=== PATIENT | male | born 1945 | race Caucasian/White ===

== ENCOUNTER 2017-07-11 07:27 | Inpatient (IN) | payer BC, MEDICARE ==
[2017-07-11 08:57] LABS: #Eosinphils 0.1 thou/uL (0.0-0.7); #Lymphocytes 0.6 thou/uL (1.20-3.40); #Monocytes 0.3 thou/uL (0.11-0.59); #Neutrophils 2.7 thou/uL (1.40-6.50); %Eosinophils 2.5 % (0.0-10.0); Hematocrit 38.3 % (42.0-52.0); Mean Platelet Volume 7.4 fL (7.4-10.4); White Blood Cell (WBC) Count 3.7 thou/uL (4.8-10.8)
[2017-07-11] MEDS ORDERED: Ondansetron HCl/PF 4 MG/2 ML Vial IVP PRN ×3 (08:59→15:37)
[2017-07-11] MEDS ORDERED: HumaLOG 300 UNITS/3 ML VIAL SC PRN (08:59)
[2017-07-11] MEDS ORDERED: Dextrose 50% Abboject 50 ML SYRINGE SLOW IVP PRN (08:59)
[2017-07-11] MEDS ORDERED: Dextrose 5% in Water 1,000 ML IV PRN (08:59)
[2017-07-11] MEDS ORDERED: Morphine Sulfate 2 MG/ML SYRINGE SLOW IVP PRN (09:04)
[2017-07-11 09:05] LABS: ALT (SGPT) 39 U/L (8-55); AST (SGOT) 33 U/L (5-34); Alkaline Phosphatase 59 U/L (40-150); Anion Gap 13 mmol/L (10-20); BUN (Urea Nitrogen) 17 mg/dL (8.4-25.7); Bilirubin, Total 0.6 mg/dL (0.2-1.2); Calc. Creatinine Clearance 0 mL/min (70-130); Calcium 9.3 mg/dL (7.8-10.44); Carbon Dioxide 23 mmol/L (23-31); Chloride 107 mmol/L (98-107); Estimated GFR-MDRD 87; Globulin 2.8 g/dL (2.4-3.5); Protein, Total 6.5 g/dL (5.8-8.1)
--- NOTE | 2017-07-11 09:32 | RAD ---
RIGHT ANKLE 3 VIEWS: HISTORY: Fall. Right ankle injury. FINDINGS: Comminuted fracture of the distal tibia includes a spiral component of the distal metaphysis with shaft width lateral displacement of the major distal fragment and apex lateral angulation. Intraa rticular component to the medial margin of the tibial plafond is apparent with 0.2 cm gap and no sig nificant step-off. Ankle mortise is otherwise intact. Osteophytosis is present throughout the ankl e and hindfoot. Minimally displaced oblique fracture involves the distal fibula at the level of the ankle mortise. IMPRESSION: Comminuted distal tibial and fibular fractures as detailed above. POS: [place]
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
[2017-07-11] MEDS ORDERED: Neomycin-Polymyxin 1 ML AMP ONE (11:34)
[2017-07-11] MEDS ORDERED: Bupivacaine PF 0.5% 30 ML VIAL ONE (11:34)
[2017-07-11] MEDS ORDERED: Ketorolac Tromethamine 15 MG/ML VIAL IVP SCH (12:00)
[2017-07-11] MEDS ORDERED: Fentanyl 250 MCG/5 ML VIAL ONE (12:16)
[2017-07-11] MEDS ORDERED: Fentanyl 100 MCG/2 ML VIAL ONE ×2 (12:28→13:31)
[2017-07-11] MEDS ORDERED: Ketorolac Tromethamine 30 MG/ML VIAL ONE (13:24)
[2017-07-11] MEDS ORDERED: Propofol 200 MG/20 ML VIAL ONE (13:24)
[2017-07-11] MEDS ORDERED: Succinylcholine Chloride 20 MG/ML 10 ml SYRINGE FS ONE (13:24)
[2017-07-11] MEDS ORDERED: Lidocaine 1% PF 5 ML VIAL ONE (13:24)
[2017-07-11] MEDS ORDERED: ePHEDrine/0.9% NaCl/PF SYRINGE 50 mg/10 ml ONE (13:24)
[2017-07-11] MEDS ORDERED: Promethazine HCl 25 MG/ML VIAL SLOW IVP PRN (14:12)
[2017-07-11] MEDS ORDERED: Promethazine HCl 25 MG/ML VIAL IM PRN ×2 (14:12→15:37)
[2017-07-11] MEDS ORDERED: Ropivacaine 0.5% HCl/PF (150 MG/30 ML VIAL) ONE (14:55)
[2017-07-11] MEDS ORDERED: Zolpidem Tartrate 5 MG TAB PO PRN (15:37)
[2017-07-11] MEDS ORDERED: traMADol HCl 50 MG TAB PO PRN ×4 (15:37→16:22)
[2017-07-11] MEDS ORDERED: Fentanyl 100 MCG/2 ML VIAL IV PRN (15:37)
[2017-07-11] MEDS ORDERED: Ropivacaine 0.2% 550 ML 550 ML NERVE BLCK SCH (15:37)
[2017-07-11] MEDS ORDERED: HYDROcodone/Acetaminophen 10/325 mg Tablet PO PRN ×2 (15:37)
[2017-07-11] MEDS: Famotidine 20 MG TAB PO SCH ×2 (16:31→20:59)
[2017-07-11] MEDS: Famotidine/PF 20 mg/2ml Vial SLOW IVP SCH ×2 (16:32→21:00)
--- NOTE | 2017-07-11 16:34 | RAD ---
THREE VIEWS RIGHT ANKLE: Date: 07-11-17 History: ORIF right ankle. Comparison: 07-11-17 at 0755 hours. FINDINGS: There has been interval post-surgical changes with a medial plate and multiple screws transfixing a previously seen comminuted spiral type fracture of the distal tibial. There is improvement in alignm ent of the fracture fragments. No hardware complication is seen. The fracture of the lateral malleol us is less well delineated on the fluoroscopic evaluation. IMPRESSION: Internal fixation of comminuted spiral type fracture distal right tibia. POS: [place]
[2017-07-11] MEDS: Sodium Chloride 0.9% 1,000 ML IV SCH ×2 (17:18→20:56)
[2017-07-11 17:23] VITALS: BMI 27.0
[2017-07-11] MEDS: Ibuprofen 600 MG TAB PO SCH (17:39)
[2017-07-11] MEDS: Acetaminophen 500 MG TAB PO SCH ×3 (17:40→21:01)
[2017-07-11] MEDS ORDERED: Ketorolac Tromethamine 30 MG/ML VIAL IVP SCH (18:00)
[2017-07-11] MEDS ORDERED: Tamsulosin HCl 0.4 MG CAP PO SCH (21:00)
[2017-07-12] MEDS: Ibuprofen 600 MG TAB PO SCH ×2 (02:18→08:44)
[2017-07-12] MEDS: Sodium Chloride 0.9% 1,000 ML IV SCH (04:30)
[2017-07-12] MEDS: Acetaminophen 500 MG TAB PO SCH ×2 (05:13→08:45)
[2017-07-12] MEDS ORDERED: glipiZIDE 5 MG TAB PO SCH (07:30)
[2017-07-12] MEDS: Famotidine/PF 20 mg/2ml Vial SLOW IVP SCH (08:44)
[2017-07-12] MEDS: Famotidine 20 MG TAB PO SCH (08:44)
[2017-07-12] MEDS ORDERED: Tamsulosin HCl 0.4 MG CAP PO SCH (09:00)
[2017-07-12 12:16] VITALS: BP 128/74; TEMP 98.3
--- NOTE | 2017-07-12 12:37 | DIS ---
DATE OF ADMISSION: 07/11/2017 DATE OF DISCHARGE: 07/12/2017 PREOPERATIVE DIAGNOSIS: Right distal tibial metadiaphyseal displaced fracture. DISCHARGE DIAGNOSIS: Right distal tibial metadiaphyseal displaced fracture. PROCEDURE: The patient underwent an open reduction and internal fixation of right lower extremity. HOSPITAL COURSE: Hospital stay was unremarkable. The patient had no pain overnight and his block i s still in place. He will take his On[employer] ball pump home. He has been instructed on physical therapy , crutch training, and walker training. We have written him a script for Tylenol #[address]. He had no postoperative complications. FOLLOWUP: Followup would be in 10 days, sooner if there are problems and/or concerns. He has been instructed to call the clinic if he has any questions or concerns, again Tylenol #3 given with instr uctions. This is Ernesto Mason PA-C dictating for Stanford Bojorquez M.D.
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
--- NOTE | 2017-07-14 06:46 | EKG ---
Test Reason : PREOP Blood Pressure : / mmHG Vent. Rate : 053 BPM Atrial Rate : 053 BPM P-R Int : 146 ms QRS Dur : 070 ms QT Int : 488 ms P-R-T Axes : 028 -14 031 degrees QTc Int : 457 ms Sinus bradycardia Otherwise normal ECG When compared with ECG of 27-SEP-2005 16:53, No significant change was found Confirmed by PARKER TURNER ([id number]) on 07/14/2017 6:45:42 AM Referred By: YASH Confirmed By:PARKER TURNER
== END 2017-07-12 14:30 | disposition home or self-care (01) | DRG 494 ==
LOC: ERS 07:27 → SURG A 09:45
PROVIDERS: ADMIT Surgery; ATTEND Surgery
PROC: 0QSG04Z Reposition Right Tibia with Internal Fixation Device, Open Approach (ICD-10-PCS; principal; 2017-07-11)
PROC: 3E0T3BZ Introduction of Anesthetic Agent into Peripheral Nerves and Plexi, Percutaneous Approach (ICD-10-PCS; 2017-07-11)
DX: S82.51XA Displaced fracture of medial malleolus of right tibia, initial encounter for closed fracture (principal); E11.9 Type 2 diabetes mellitus without complications; S82.831A Other fracture of upper and lower end of right fibula, initial encounter for closed fracture; Z85.46 Personal history of malignant neoplasm of prostate; Z92.3 Personal history of irradiation; V89.2XXA Person injured in unspecified motor-vehicle accident, traffic, initial encounter
CPT/HCPCS: 36415; 76001; 80053; 85025; 86850; 86900; 86901; 93005; 93010; 96374; J1885; A4306; C1713; G8978-GP-CM; G8979-GP-CK; G8987-GO-CJ; G8988-GO-CI; J1170; J2001; J2704; J2795; J3010; S0020

== ENCOUNTER 2017-12-26 11:44 | Emergency (ER) | payer BC, MEDICARE ==
--- NOTE | 2017-12-26 14:39 | RAD ---
THREE VIEWS LUMBOSACRAL SPINE: HISTORY: Fall from an 8 foot ladder with low back pain. FINDINGS: Three views lumbosacral spine show compression deformity of the L1 vertebral body with approximately 10% height loss. The age of this fracture is indeterminate and may be acute or chronic. There are m ild to moderate degenerative changes throughout the lumbar spine, greatest at L5-S1. Posterior facet arthrosis is seen throughout the lumbar spine. IMPRESSION: Wedge compression deformity of L1 may be acute or chronic. A CT of the lumbar spine is recommended f or further evaluation. POS: [place]
--- NOTE | 2017-12-26 15:11 | CT ---
CT LUMBAR SPINE WITHOUT CONTRAST: Date: 12/26/17 HISTORY: Trauma. Fall from ladder 2 days ago. Post-traumatic pain. COMPARISON: None. TECHNIQUE: CT lumbar spine is performed without contrast. Reformatted images are submitted for interpretation. FINDINGS: Visualized alimentary canal and solid organs are unremarkable. Visualized aorta is unremarkable. Symm etric attenuation of the psoas muscles. Limited evaluation of the contents of the central spinal canal and neural foramina due to technique. Mild compression fractures involving L1 and L4. There is minimal paraspinal hematoma. Minimal retropu lsion. T11-T12 and T12-L1: No high grade central canal stenosis or high grade neural foraminal narrowing. L1-L2: No high grade central canal stenosis or high grade foraminal narrowing. L2-L3: Generalized disc bulge, ligamentum flavum thickening, and facet hypertrophy result in mild central ca nal stenosis. Neural foramina are patent bilaterally. L3-L4: Generalized disc bulge, ligamentum flavum thickening, and facet hypertrophy result in moderate centra l canal stenosis. Right neural foramen is patent. Minimal left foraminal narrowing. L4-L5: Generalized disc bulge, ligamentum flavum thickening, and facet hypertrophy result in severe central canal stenosis. Mild bilateral foraminal narrowing. L5-S1: Generalized disc bulge, ligament flavum thickening, and facet hypertrophy result in mild central gera l stenosis. Narrowing in both subarticular zones with partial obscuration of bilateral traversing S1 nerve roots. Mild bilateral foraminal narrowing. IMPRESSION: 1. Acute mild compression fractures at L1 and L4. 2. Degenerative changes of the lumbar spine as above. Significant central canal stenosis at the L4-L 5 level. POS: [facility]
[2017-12-26] MEDS ORDERED: HYDROcodone/Acetaminophen 5/325 mg Tablet ONE (15:59)
== END 2017-12-26 16:39 | disposition home or self-care (01) ==
LOC: ERS 11:44
DX: S32.010A Wedge compression fracture of first lumbar vertebra, initial encounter for closed fracture (principal); S32.040A Wedge compression fracture of fourth lumbar vertebra, initial encounter for closed fracture; E11.9 Type 2 diabetes mellitus without complications; Z85.46 Personal history of malignant neoplasm of prostate; Z79.891 Long term (current) use of opiate analgesic; W11.XXXA Fall on and from ladder, initial encounter
CPT/HCPCS: 72100; 72131

== ENCOUNTER 2018-01-17 10:28 | Outpatient (CLI) | payer BC, MEDICARE ==
--- NOTE | 2018-01-17 11:38 | RAD ---
TWO VIEWS LUMBOSACRAL SPINE: HISTORY: Fall two weeks ago with compression fracture and back pain. COMPARISON: 12/26/2017 FINDINGS: Two views of the thoracic spine show wedge compression deformity of the L1 and L4 vertebral bodies. The L1 vertebral body has decreased in height compared to the prior examination, and there is now elliott roximately 40% to 50% height loss. The L4 vertebral body has also decreased in height, to approximat lennox 10% to 25% height loss. The vertebral bodies demonstrate normal alignment without subluxation. Moderate degenerative changes are seen throughout the lumbar spine. IMPRESSION: Compression fractures of L1 and L4 have undergone height loss compared to the prior exam. POS: [facility]
== END 2018-01-17 10:29 | disposition home or self-care (01) ==
LOC: TBSIIMAG 10:28
PROVIDERS: ATTEND Neurological Surgery
DX: M48.56XA Collapsed vertebra, not elsewhere classified, lumbar region, initial encounter for fracture (principal); S32.010D Wedge compression fracture of first lumbar vertebra, subsequent encounter for fracture with routine healing; S32.040D Wedge compression fracture of fourth lumbar vertebra, subsequent encounter for fracture with routine healing
CPT/HCPCS: 72100